=== PATIENT | female | born 1985 | race Caucasian/White ===

== ENCOUNTER 2022-11-05 13:21 | Outpatient (CLI) | payer OTHER, MEDICAID, SELFPAY ==
--- NOTE | 2022-11-05 13:45 | CRLHL7_ITS ---
For Patients: As a result of the Cures Act, medical imaging exams and procedure reports are released immediately into your electronic medical record. You may view this report before your referring provider. If you have questions, please contact your health care provider. INDICATION: First trimester scan, establish dates. COMPARISON: None. TECHNIQUE: Real-time llanes-scale imaging of the pelvis was performed. FINDINGS: Sonographic imaging demonstrates a single living intrauterine gestation. The embryo demonstrates a regular cardiac rate measuring 178 beats per minute. The embryo`s crown-rump length measurement of 2.2 cm corresponds to a gestational age of 9 weeks 0 days with a sonographic due date of 06/10/2023. There is a normal-appearing yolk sac. There are no gross abnormalities noted within the embryo at this early state of development. The gestational sac has a normal appearance. There is a 6 x 5 x 12 millimeter perigestational hemorrhage. The amount of fluid within the sac appears appropriate for gestational age. The cervix is closed. The myometrium appears normal. The right ovary appears normal. The left ovary is not visualized. Trace pelvic free fluid noted. IMPRESSION: Single living intrauterine with sonographic gestational age 9 weeks 0 days and sonographic due date 06/10/2023. Small subchorionic hemorrhage measuring 6 x 5 x 12 millimeters. Dictated by Andre Villalobos MD @ 11/05/2022 2:19:45 PM (Electronically Signed)
== END 2022-11-05 13:22 | disposition home or self-care (01) ==
LOC: US 13:23
PROVIDERS: Visit Provider Physician Assistant
DX: Z34.91 Encounter for supervision of normal pregnancy, unspecified, first trimester (principal); O20.9 Hemorrhage in early pregnancy, unspecified; Z3A.09 9 weeks gestation of pregnancy
CPT/HCPCS: 76817

== ENCOUNTER 2022-11-05 14:42 | Outpatient (CLI) | payer MEDICAID, OTHER, SELFPAY | END 2022-11-05 14:43 | disposition home or self-care (01) | PROVIDERS: Visit Provider Physician Assistant | DX: Z34.91 Encounter for supervision of normal pregnancy, unspecified, first trimester (principal); O20.9 Hemorrhage in early pregnancy, unspecified; Z3A.09 9 weeks gestation of pregnancy | CPT/HCPCS: 84443; 86592; 86703; 86762; 86787; 86803; 86850; 86900; 86901; 87086; 87340 ==

== ENCOUNTER 2022-12-28 09:48 | Outpatient (CLI) | payer MEDICAID, SELFPAY ==
--- NOTE | 2022-12-28 10:15 | CRLHL7_ITS ---
For Patients: As a result of the Cures Act, medical imaging exams and procedure reports are released immediately into your electronic medical record. You may view this report before your referring provider. If you have questions, please contact your health care provider. LEFT BREAST ULTRASOUND CLINICAL HISTORY: LEFT breast swelling/skin color changes. 16 weeks . COMPARISON: None. TECHNIQUE: Real-time ultrasound imaging of LEFT breast with imaging documentation. FINDINGS: Targeted sonogram medial LEFT breast performed 8-9 o`clock 6-10 cm from the nipple. Normal fibroglandular tissue is present. No abscess or mass. No fluid collection. No abnormal vascularity. Mild multi duct ectasia incidentally noted. IMPRESSION: No suspicious findings. No abscess. RECOMMENDATIONS: Clinical follow-up. BI-RADS Category 2: Benign A lay language report of this examination will be provided to the patient. Dictated by Andre Villalobos MD @ 12/28/2022 12:23:30 PM angelaj/Dictated by: Andre Villalobos MD @ 12/28/2022 12:23:00 PM (Electronically Signed)
--- OUTSIDE RECORDS SUMMARY | 2022-12-28 11:54 | XMS_ITS | Continuity of Care Document ---
Author Name Unknown Organization [facility] Address [address] [address] [place] [address] Phone Care Team Providers Care Pattern And Chain Maker Name Role Phone Unavailable Unavailable Unavailable Allergies, Adverse Reactions, Alerts Substance Reaction Status Criticality adhesive tape Rash Active No Information Procedures Procedure Date Ugi Endo; W/endo Ultrasound Ex New Level 4 Advance Directives Directive Yes / No Effective Date File Name No Information Encounters Encounter Description Practice Location Reason(s) For Visit Diagnoses Date Provider Providers Copied on Encounter [facility], [address] [address], [place], [place], [id number], [place] tel:[phone] [facility] No Information Apr- 1 No Information [facility], [address] [address], [place], [id number], [place] tel:[phone] [facility] Abdominal pain, acuteElevated LFTs Oct- 1 No Information [facility], [address] [address], [place], [place], [address], [place] tel:[phone] [facility] No Information Oct- 1 Lilliam Nowak. [address] [facility], [facility] [address], [place], [place], [id number], [place]. tel:[phone] Referring Provider: Susanna Escalante MD M, [address] [place] [address], [place], [address]. tel:[phone] [facility], [address] [address], [place] [address], [place] tel:[phone] [facility] No Information 1 Adrianna Wakefield. [address] [facility], [facility] [address], [place], [place], [address], [place]. tel:[phone] New Level 4 [facility], [address] [address], [place], [id number], [place] tel:[phone] [facility] GI Symptoms or Concerns (chief complaint) RUQ abdominal painElevated LFTsStatus post cholecystectom y 1 No Information Referring Provider: Zahra SALAZAR, [address], [place], [address]. tel:[phone] [facility], [address] [address], [place], [id number], [place] tel:[phone] [facility] No Information 1 No Information [facility], [address] [address], [place], [id number], [place] tel:[phone] [facility] No Information 1 Donaldo Jaeger. [address] [facility], [facility] [address], [place], [place], [id number], [place]. tel:[phone] Family History Family Member Type Diagnosis Age At Onset Mother Problem (finding) Colon polyps Father Problem (finding) Colon polyps Immunizations Vaccine Date Status Comments SARS-COV-2 (COVID-19) vaccin e, mRNA, spike protein, LNP, preservative free, 100 mcg/0.5mL dose administered Note: [facility] bi-direct ional interface ; Source: Other Registry SARS-COV-2 (COVID-19) vaccin e, mRNA, spike protein, LNP, preservative free, 100 mcg/0.5mL dose administered Note: [facility] bi-direct ional interface ; Source: Other Registry Seasonal, quadrivalent, recombinant, injectable influenza vaccine, preservative free administered Note: [facility] bi-direct ional interface ; Source: Other Registry Afluria Qd administered Note: [facility] bi-directional interface ; Source: Other Registry Afluria Qd administered Note: [facility] bi-directional interface ; Source: Other Registry tetanus toxoid, reduced diphtheria toxoid, and acellular pertussis vaccine, adsorbed administered Note: [facility] b i-directional interface ; Source: Other Registry Seasonal, trivalent, recombinant, injectable influenza vaccine, preservative free administered Note: [facility] bi-direct ional interface ; Source: Other Registry Influenza, seasonal, injecta ble, preservative free administered Note: [facility] bi-direct ional interface ; Source: Other Registry Payers Payer name Insurance type Covered libertarian ID Authoriza tion(s) No Information Social History Type Description Quantity Date Captured Comments Alcohol Use Details Unknown Caffeine Use Details Unknown Tobacco Use Status No Information Smoking Status No Information Sex Female Chief Complaint And Reason For Visit No Information Reason For Referral Reason For Referral No Information Plan Of Treatment Date Type Action Status Referral Referred To: [address]
[facility], [facility] [address] [place], [address] Ordered: referred to Cliff Turpin MD s/p danna, RUQ pain , dil cbd, elev LFTs 1st available appt ordered Referral Ordered: EUS Appointment date/timeframe: 11/13/2020 ordered History Of Present Illness Encounter Date Complaint History Of Prese nt Illness GI Symptoms or Concerns The natalia ent is a 35-year-old white female, status post cholecystectomy for gallbladder sludge, who is having a virtual visit today for evaluation of a several-year history of persistent/progressive episodes of right upper quadrant abdominal pain associated with elevated liver function tests. She again began having symptoms at least 6 years ago, which ultimately led to a cholecystectomy apparently at [facility] in 2014 for confirmed gallbladder sludge. Within 2 months following the surgery, she began having a recurrence of the same pain localized to the right upper quadrant radiating around into her back. These episodes have progressed in frequency and are now occurring at least monthly. When these attacks occur, they can usually last up to a day and may wax and wane in intensity. In between attacks, she feels well and can eat normally. She has noted that high carbohydrate foods seem to precipitate attacks. She is now working with a dietitian to moderate her Functional Status Date Functional Assessmen t No Information Instructions Date Instruction Additional Infor douglas We will schedule the patient for an endoscopic ultrasound in the near future. If there is evidence for a choledocholithiasis, then an ERCP theoretically could be done at the same time with sphincterotomy and stone/sludge removal. If her endoscopic ultrasound however is normal, then we will likely refer to [facility], Dr. Turpin for evaluation of sphincter of Oddi dysfunction. Otherwise, we will request records from the [facility] in [place], [facility] in [place], as well as [facility] for review. Related to RUQ abdominal pain Consider referral to [facility]) for ?SOD if EUS is neg Related to RUQ abdominal pain Assessments Type Assessment Date No Information Patient Care Teams Name Effective Dates (start - stop) Status Members No Information
== END 2022-12-28 09:49 | disposition home or self-care (01) ==
LOC: US 09:48
PROVIDERS: Visit Provider Obstetrics & Gynecology
DX: O26.892 Other specified pregnancy related conditions, second trimester (principal); N63.20 Unspecified lump in the left breast, unspecified quadrant
CPT/HCPCS: 76642

== ENCOUNTER 2023-02-18 14:47 | Outpatient (CLI) | payer MEDICAID, SELFPAY | END 2023-02-18 14:48 | disposition home or self-care (01) | PROVIDERS: Visit Provider Obstetrics & Gynecology | DX: O09.522 Supervision of elderly multigravida, second trimester (principal); Z3A.23 23 weeks gestation of pregnancy | CPT/HCPCS: 84439; 84443 ==

== ENCOUNTER 2023-03-17 13:33 | Outpatient (CLI) | payer OTHER, MEDICAID, SELFPAY ==
[2023-03-17 13:57] VITALS: TEMP 36.7
[2023-03-17 13:58] VITALS: BP 132/99; PULSE 121
[2023-03-17] MEDS: LACTATED RINGERS 1000 ML 1,000 ML IV (14:30)
[2023-03-17 14:36] LABS: Appearance Urine Clear (Clear); Bilirubin Urine Negative (Negative); Blood Urine Negative (Negative); Color Urine Yellow (Yellow); Glucose Urine Negative (Negative); Ketones Urine Negative (Negative); Leukocyte Esterase Urine Negative (Negative); Nitrite Urine Negative (Negative); Protein Urine Negative (Negative); Specific Gravity Urine <= 1.005 (1.000-1.030); Urobilinogen Urine 0.2 (0.2-1.0)
[2023-03-17 14:37] LABS: Hematocrit 31.6 % (33.0-51.0); Hemoglobin* 10.6 gm/dL (12.0-16.0); Mean Corpuscular HGB Conc 34 gm/dL (32-36); Mean Corpuscular Hemoglobin 29 pg (26-34); Mean Corpuscular Volume 87 fL (80-100); Platelet Count* 347 K/uL (140-440); Red Blood Count 3.63 m/uL (4.00-5.20); White Blood Count* 9.43 K/uL (4.50-11.00)
[2023-03-17] MEDS: ONDANSETRON 2 MG/ML inj 4 MG IVP (14:39)
[2023-03-17] MEDS: FAMOTIDINE 20 MG TABLET PO (14:39)
[2023-03-17 14:48] LABS: Albumin* 3.6 g/dL (3.3-5.0); Chloride* 105 mmol/L (96-114); Sodium* 133 mmol/L (135-149)
[2023-03-17 14:49] LABS: Potassium* 3.6 mmol/L (3.6-5.1)
[2023-03-17 14:51] LABS: Total Protein Urine 15 mg/dL
[2023-03-17 14:51] LABS: Aspartate Amino Transferase* 16 U/L (12-35); Bilirubin Total* 0.1 mg/dL (0.1-1.5); Blood Urea Nitrogen* 6 mg/dL (5-24); Carbon Dioxide* 21 mmol/L (20-32); Creatinine* 0.3 mg/dL (0.5-1.5); Estimated Glomerular Filt Rate 139 ml/min; Total Protein* 6.9 g/dL (6.0-8.3)
[2023-03-17 14:52] LABS: Creatinine Urine 12.5 mg/dL
[2023-03-17 14:52] LABS: Alanine Aminotransferase* 16 U/L (4-35); Alkaline Phosphatase* 65 U/L (40-150); Calcium* 8.6 mg/dL (8.4-10.6); Glucose* 93 mg/dL (60-115)
[2023-03-17 15:06] LABS: Slide Review Reflex No
[2023-03-17 15:17] VITALS: BP 112/61; PULSE 92; TEMP 36.8
--- NOTE | 2023-03-17 15:28 | CRLHL7_ITS ---
For Patients: As a result of the Cures Act, medical imaging exams and procedure reports are released immediately into your electronic medical record. You may view this report before your referring provider. If you have questions, please contact your health care provider. INDICATION: Concerning symptoms for pre-term patient. COMPARISON: OB ultrasound 01/19/2023. TECHNIQUE: Real time llanes scale imaging of the fetus was performed without non-stress testing. Color Doppler and spectral Doppler analysis of the umbilical artery was performed. FINDINGS: Sonographic imaging demonstrates a single living intrauterine gestation. The fetus demonstrates a regular cardiac rate of 144 beats per minute. The fetus has a breech orientation. The placenta lies anteriorly. The umbilical artery S/D ratio measures 2.1 which is within normal limits. There is polyhydramnios with single deepest pocket measuring 9.3 cm and the amniotic fluid index measuring 33.2 cm (2/2). The fetus was active (2/2). There was normal flexion and extension of the trunk and extremities (2/2). The fetus did not demonstrate at least 30 seconds of continuous breathing movements (0/2). IMPRESSION: 1. Biophysical profile score 6 out of 8. 2. Polyhydramnios with KEREN measuring 33.2 cm. Dictated by Jeanne Marshall MD @ 03/17/2023 5:05:01 PM (Electronically Signed)
[2023-03-17] MEDS: ACETAMINOPHEN 500 MG TABLET 1000 MG PO (15:47)
[2023-03-17 16:02] LABS: Amnisure Rom* Negative
--- NOTE | 2023-03-17 17:11 | W.PM.OBO ---
OB Outpatient HPI History of Present Illness Time Seen by Provider: 17:11 Date Seen: 03/17/23 History of Present Illness: 37 year old at 27 5/7 weeks gestation by LMP and first trimester US, VARGAS 06/11/23 , presents after not feeling great today. Patient states she woke up this morning and was feeling a bit nauseous, but went to work as usual and almost at noon started to experience a headache, increased nausea and vomited twice, she also started to experience a cramp in her abdomen, and this is when she decided to come in for evaluation. Patient also states that she has been feeling more moist but denied watery vaginal discharge or bleeding. Patient also complains of increased swelling in the lower extremities, in her hands mostly in the morning. Patient also states that she has gained about 10 pounds in 1 week. Baby moving naturally: Yes Bleeding: No Contractions: No Leaking fluid: No Discharge: No Heartburn: No Back pain: No Meds Home Medications and Allergies Home Medications Medication Instructions Recorded Confirmed Type acetaminophen 500 mg tablet 1,000 mg PO Q6H PRN 11/05/22 02/18/23 History (Tylenol Extra Strength) marsha root extract 50 mg tablet mg PO PRN 11/05/22 02/18/23 History levothyroxine 75 mcg tablet mcg PO DAILY 11/05/22 02/18/23 History prenat.vits,barron,arb-kbuf-buzum 1 tab PO QDAY 11/05/22 02/18/23 History valacyclovir 500 mg tablet 500 mg PO QDAY PRN 11/05/22 02/18/23 History aspirin 81 mg tablet,delayed 81 mg PO QDAY 12/24/22 02/18/23 History release (Adult Low Dose Aspirin) methylphenidate HCl 20 mg biphasic 20 mg PO QAM 12/24/22 02/18/23 History 50-50 capsule,extended release (Ritalin LA) Allergies Allergy/AdvReac Type Severity Reaction Status Date / Time cetirizine [From Zyrtec] Allergy Unknown Unknown Verified 02/18/23 14:00 doxycycline Allergy Unknown Gastrointestinal Verified 02/18/23 14:00 Upset fexofenadine [From Allyn] Allergy Unknown Unknown Verified 02/18/23 14:00 Sulfa (Sulfonamide Allergy Unknown Unknown Verified 02/18/23 14:00 Antibiotics) [facility] Medical History ADD (attention deficit disorder) Bilateral plantar fasciitis Depression Dysfunction of sphincter of Oddi ELOY (generalized anxiety disorder) GERD (gastroesophageal reflux disease) Herpes genitalia Hypothyroidism IBS (irritable bowel syndrome) Migraine Obstructive sleep apnea Panic attacks PTSD (post-traumatic stress disorder) Sinoatrial node tachycardia Surgical History History of cholecystectomy (2014) History of D&C (08/31/19) History of ERCP History of tonsillectomy and adenoidectomy (1989) History of vaginal delivery Family History (Updated 11/05/22 @ 15:15 by Catracho Clarke) Father Diabetes High blood pressure Depression Cardiac arrhythmia Mother Depression Cardiac arrhythmia Paternal Grandfather Stroke Paternal Grandmother Diabetes Maternal Grandfather Lung cancer Maternal Grandmother Colon cancer Sister Cardiac arrhythmia Diabetes Sister Cardiac arrhythmia Diabetes High blood pressure Social History Smoking Status: Never smoker Little interest or pleasure in doing things: not at all Feeling down, depressed, or hopeless: not at all History History 4 Elective abortions Para 2 Spontaneous abortions 1 Hx # Term Pregnancies Ectopic pregnancies Hx # Pregnancies Multiple births Number of Living Children 2 Past Pregnancies Del. Date GA/Weeks Outcome Route wt Inf Gender Labor Lgth Anesthesia Location Provider Compli 12/12/12 38 live - full term 3.459 kg Female 30 plus hrs epidural [facility] 11/05/14 37 live - full term 3.544 kg Female 30 plus hrs epidural [facility] other Delivery Date: 11/05/14 Last Updated by: Jeny Myrick ([facility]), [facility] emergency gallbladder removal at 32 weeks OB - H&P: Exam Physical Exam Vital signs: Pulse BP 92 112/61 03/17/23 15:17 03/17/23 15:17 Narrative: NST: 140bpm/positive accelerations multiple 10x10/no decelerations/moderate variability/no uterine contractions BPP:6/8, -2 for breathing, KEREN:33cm, consistent with polyhydramnios Labs Labs Laboratory Tests 03/17/23 03/17/23 03/17/23 Range/Units 15:28 14:27 14:20 WBC 9.43 (4.50-11.00) K/uL RBC 3.63 L (4.00-5.20) m/uL Hgb 10.6 L (12.0-16.0) gm/dL Hct 31.6 L (33.0-51.0) % MCV 87 (80-100) fL MCH 29 (26-34) pg MCHC 34 (32-36) gm/dL Plt Count 347 (140-440) K/uL Sodium 133 L (135-149) mmol/L Potassium 3.6 (3.6-5.1) mmol/L Chloride 105 (96-114) mmol/L Carbon Dioxide 21 (20-32) mmol/L BUN 6 (5-24) mg/dL Creatinine 0.3 L (0.5-1.5) mg/dL Estimated GFR 139 ml/min Glucose 93 (60-115) mg/dL Calcium 8.6 (8.4-10.6) mg/dL Total Bilirubin 0.1 (0.1-1.5) mg/dL AST 16 (12-35) U/L ALT 16 (4-35) U/L Alkaline Phosphatase 65 (40-150) U/L Total Protein 6.9 (6.0-8.3) g/dL Albumin 3.6 (3.3-5.0) g/dL Urine Color Yellow (Yellow) Urine Appearance Clear (Clear) Urine pH 6.0 (5.0-8.5) Ur Specific Arley <= 1.005 (1.000-1.030) Urine Protein Negative (Negative) Urine Glucose (UA) Negative (Negative) Urine Ketones Negative (Negative) Urine Blood Negative (Negative) Urine Nitrite Negative (Negative) Urine Bilirubin Negative (Negative) Urine Urobilinogen 0.2 (0.2-1.0) Ur Leukocyte Esterase Negative (Negative) Urine Creatinine 12.5 mg/dL Protein/Creatinin Ratio 1.20 H (0-0.19) Urine Total Protein 15 mg/dL Membrane Rupture Negative Assessment and Plan Assessment and plan (1) Polyhydramnios: Status: Acute Plan Patient received IVFs, Zofran and IV Pepcid and she is feeling much better. Initially she had one elevated BP with a diastolic in 99, but repeat all normal, she has not have documented elevated blood pressures this , lab work remarkable for anemia, normal platelets, normal kidney and liver function, slight hyponatremia, elevated protein to creatinine ratio. BPP 02/03, but NST reactive 04/07. Patient has a scheduled appointment in clinic tomorrow, she has her 1hrGTT scheduled for tomorrow, I will ask our clinic staff to repeat a BPP and to help schedule appointment with MFM if her 1hr GTT is normal and we do not have an explanation for polyhydramnios. Patient states that her boyfriend is diabetic and she monitors her BS sporadically and she always has normal or low blood sugars. Patient also has a blood pressure monitor at home and I recommend for her to monitor BPs at least once daily from now on. I also recommend for patient to complete a 24 hour urine collection. Patient is in agreement with plan. Time Spent with Patient Time with Patient: less than 15 minutes
--- NOTE | 2023-03-17 17:37 | PC.OBNST ---
NST Note NST Note Start: 03/17/23 13:40 Freq: ONCE Status: Active Protocol: Document 03/17/23 17:25 [facility] (Rec: 03/17/23 17:37 [facility] [id number]) NST Note 4 Para (# of births) 2 EDC 06/11/23 Gestational Age In Weeks & Days 27 Weeks & 5 Days High Risk Factors Advanced Maternal Age Patient Presented with Complaint(s) of Leaking fluid,Pain,Nausea and vomiting,Headache If Pain, describe location Tight abdominal pain Other Complaints Increased swelling in hands and feet Reactive Yes Appropriate for Gestational Age Yes SUMIT Betancourt RN Date 03/17/23 Reactive Yes Appropriate for Gestational Age Yes RN Emmy Lainez MD Date 03/17/23 OB NST charge Yes Complete NST Note via Write Note Yes The provider's electronic signature indicates the NST is reactive/appropriate for gestational age. *Note to provider: If an addendum is required, open the patient's chart and click on the note under the Nurse/Allied Health tab.
[2023-03-18 16:14] LABS: Total Protein Urine 11 mg/dL
[2023-03-18 16:16] LABS: Creatinine Urine 54.7 mg/dL
[2023-03-18 16:18] LABS: Collection Time Urine 24 Hours; Total Protein 24 Hour Urine 327.3 mg/Day; Total Volume 24 Hour Urine 2975 ml
[2024-04-18 15:33] LABS: Urine Creatinine mg/24 Hour 1627 mg/Day
== END 2023-03-17 17:25 | disposition home or self-care (01) ==
LOC: OB OUT 13:33 → OB 13:33
PROVIDERS: Visit Provider Obstetrics & Gynecology
DX: O40.9XX0 Polyhydramnios, unspecified trimester, not applicable or unspecified (principal)
CPT/HCPCS: 36415; 59025; 76819; 80053; 81003; 82570; 84112; 84156; 85027; 87086; 99213; A9270; J2405; J7120

== ENCOUNTER 2023-03-18 15:36 | Outpatient (CLI) | payer OTHER, MEDICAID, SELFPAY ==
--- OUTSIDE RECORDS SUMMARY | 2023-03-18 15:39 | XMS_ITS | Continuity of Care Document ---
Author Name Unknown Organization [facility] Address [address] [address] [place] [address] Phone Care Team Providers Care Dormitory Maid Name Role Phone Unavailable Unavailable Unavailable Allergies, Adverse Reactions, Alerts Substance Reaction Status Criticality adhesive tape Rash Active No Information Procedures Procedure Date Ugi Endo; W/endo Ultrasound Ex New Level 4 Advance Directives Directive Yes / No Effective Date File Name No Information Encounters Encounter Description Practice Location Reason(s) For Visit Diagnoses Date Provider Providers Copied on Encounter [facility], [address] [address], [place], [place], [id number], [place] tel:[phone] [facility] No Information Apr- 1 No Information [facility], [address] [address], [place], [id number], [place] tel:[phone] [facility] Abdominal pain, acuteElevated LFTs Oct- 1 No Information [facility], [address] [address], [place], [place], [address], [place] tel:[phone] [facility] No Information Oct- 1 Lilliam Nowak. [address] [facility], [facility] [address], [place], [place], [id number], [place]. tel:[phone] Referring Provider: Susanna Escalante MD M, [address] [facility], [place], [address]. tel:[phone] [facility], [address] [address], [facility], [address], [place] tel:[phone] [facility] No Information 1 Adrianna Wakefield. [address] [facility], [facility] [address], [place], [place], [address], [place]. tel:[phone] New Level 4 [facility], [address] [address], [place], [id number], [place] tel:[phone] [facility] GI Symptoms or Concerns (chief complaint) RUQ abdominal painElevated LFTsStatus post cholecystectom y 1 No Information Referring Provider: Zahra SALAZAR, [address], [place], [address]. tel:[phone] [facility], [address] [address], [place], [id number], [place] tel:[phone] [facility] No Information 1 No Information [facility], [address] [address], [place], [id number], [place] tel:[phone] [facility] No Information 1 Donaldo Jaeger. [address] [facility], [facility] [address], [place], [place], [address], [place]. tel:[phone] Family History Family Member Type Diagnosis Age [...] Type Action Status Referral Referred To: [address]
[facility], [facility] [address] [place], [address] Ordered: referred to Cliff Turpin MD s/p [...] ultimately led to a cholecystectomy apparently at [facility] in 2014 for confirmed gallbladder sludge. Within [...] we will likely refer to [facility], Dr. Turpin for evaluation of sphincter of Oddi dysfunction. Otherwise, we will request records from the [facility] in [place], [facility] in [place], as well as [facility] for review. Related to RUQ abdominal pain Consider referral to [facility]) for ?SOD if EUS is neg Related to RUQ abdominal pain Assessments Type Assessment Date No Information Patient Care Teams Name Effective Dates (start - stop) Status Members No Information
== END 2023-03-18 15:37 | disposition home or self-care (01) ==
LOC: NFLDREF 15:37
PROVIDERS: Visit Provider Obstetrics & Gynecology
DX: O40.9XX0 Polyhydramnios, unspecified trimester, not applicable or unspecified (principal)
CPT/HCPCS: 76819; 86592

== ENCOUNTER 2023-03-22 11:54 | Outpatient (CLI) | payer OTHER, MEDICAID, SELFPAY ==
--- NOTE | 2023-03-22 12:15 | CRLHL7_ITS ---
For Patients: As a result of the Cures Act, medical imaging exams and procedure reports are released immediately into your electronic medical record. You may view this report before your referring provider. If you have questions, please contact your health care provider. INDICATION: pre-eclampsia, polyhydramnios TECHNIQUE: Real time llanes scale imaging of the fetus was performed. COMPARISON: 03/18/2023 FINDINGS: Sonographic imaging demonstrates a single living intrauterine gestation. Fetus demonstrates a regular cardiac rate of 144 beats per minute. Fetus has a vertex position. The placenta lies anteriorly. Amniotic fluid volume appears upper limits of normal and there is a single deepest pocket of 7.9 cm. KEREN 20.0 cm. The estimated weight is 1928gm which lies at the greater than 97th %. On the prior OB ultrasound dated 01/19/2023 the estimated weight was at the 93rd percentile. BPD greater than 97th percentile. HC 80th percentile. AC greater than 97th percentile. FL 87th percentile. The fetus was active and demonstrated normal breathing movements. There was normal flexion and extension of the trunk and extremities. IMPRESSION: Normal biophysical profile score 8/8. Sonographic gestational age 31 weeks 4 days and sonographic due date 05/20/2023. Sonographic age 22 days ahead of the clinical age. Estimated weight greater than 97th percentile. BPD and HC greater than 97th percentile. Amniotic fluid upper limits of normal. KEREN 20.0 cm. Dictated by Andre Villalobos MD @ 03/22/2023 1:02:28 PM (Electronically Signed)
== END 2023-03-22 11:55 | disposition home or self-care (01) ==
PROVIDERS: Visit Provider Obstetrics & Gynecology
DX: O14.93 Unspecified pre-eclampsia, third trimester (principal); O40.3XX0 Polyhydramnios, third trimester, not applicable or unspecified; Z3A.31 31 weeks gestation of pregnancy
CPT/HCPCS: 76816; 76819; 82565; 84450; 84460; 84520; 84550

== ENCOUNTER 2023-03-29 13:48 | Outpatient (CLI) | payer OTHER, MEDICAID, SELFPAY ==
--- NOTE | 2023-03-29 14:20 | CRLHL7_ITS ---
For Patients: As a result of the Century Cures Act, medical imaging exams and procedure reports are released immediately into your electronic medical record. You may view this report before your referring provider. If you have questions, please contact your health care provider. INDICATION: pre-eclampsia, polyhydramnios, GDM COMPARISON: 03/22/2023 TECHNIQUE: Real time llanes scale imaging of the fetus was performed. Without non-stress testing. FINDINGS: Sonographic imaging demonstrates a single living intrauterine gestation. Fetus demonstrates a regular cardiac rate of 137 beats per minute. Fetus has a chinedu breech position. The amniotic fluid volume appears increased and there is a single deepest pocket measurement of 9.2 cm. KEREN 32.2 cm. The fetus was active and demonstrated normal breathing movements. There was normal flexion and extension of the trunk and extremities. IMPRESSION: Normal biophysical profile score of 8 out of 8. Polyhydramnios. Dictated by Andre Villalobos MD @ 03/29/2023 3:01:09 PM (Electronically Signed)
== END 2023-03-29 13:49 | disposition home or self-care (01) ==
LOC: US 13:49
PROVIDERS: Visit Provider Obstetrics & Gynecology
DX: O40.9XX0 Polyhydramnios, unspecified trimester, not applicable or unspecified (principal); O14.90 Unspecified pre-eclampsia, unspecified trimester
CPT/HCPCS: 76819; 82565; 84450; 84460; 84520; 84550

== ENCOUNTER 2023-04-01 13:28 | Outpatient (CLI) | payer OTHER, MEDICAID, SELFPAY | END 2023-04-01 13:29 | disposition home or self-care (01) | PROVIDERS: Visit Provider Obstetrics & Gynecology | DX: O09.523 Supervision of elderly multigravida, third trimester (principal); Z3A.29 29 weeks gestation of pregnancy | CPT/HCPCS: 82565; 82570; 84156; 84450; 84460; 84520; 87086 ==

== ENCOUNTER 2023-04-04 13:43 | Outpatient (CLI) | payer OTHER, MEDICAID, SELFPAY ==
--- NOTE | 2023-04-04 14:00 | CRLHL7_ITS ---
For Patients: As a result of the Century Cures Act, medical imaging exams and procedure reports are released immediately into your electronic medical record. You may view this report before your referring provider. If you have questions, please contact your health care provider. INDICATION: Polyhydramnios COMPARISON: 03/29/2023 TECHNIQUE: Real time llanes scale imaging of the fetus was performed. Without non-stress testing. FINDINGS: Sonographic imaging demonstrates a single living intrauterine gestation. Fetus demonstrates a regular cardiac rate of 142 beats per minute. Fetus has a vertex position. The amniotic fluid volume appears increased and there is a single deepest pocket measurement of 9.1 cm. KEREN 30.0 cm. The fetus was active and demonstrated normal breathing movements. There was normal flexion and extension of the trunk and extremities. IMPRESSION: Normal biophysical profile score of 8 out of 8. Polyhydramnios. Dictated by Andre Villalobos MD @ 04/05/2023 10:29:54 AM (Electronically Signed)
== END 2023-04-04 13:44 | disposition home or self-care (01) ==
LOC: US 13:44
PROVIDERS: Visit Provider Obstetrics & Gynecology
DX: O40.9XX0 Polyhydramnios, unspecified trimester, not applicable or unspecified (principal)
CPT/HCPCS: 76819; 82565; 84450; 84460; 84520; 84550

== ENCOUNTER 2023-04-11 13:31 | Outpatient (CLI) | payer OTHER, MEDICAID, SELFPAY ==
--- NOTE | 2023-04-11 14:00 | CRLHL7_ITS ---
For Patients: As a result of the Century Cures Act, medical imaging exams and procedure reports are released immediately into your electronic medical record. You may view this report before your referring provider. If you have questions, please contact your health care provider. INDICATION: pre-eclampsia, polyhydramnios COMPARISON: 04/04/2023 TECHNIQUE: Real time llanes scale imaging of the fetus was performed. Without non-stress testing. FINDINGS: Sonographic imaging demonstrates a single living intrauterine gestation. Fetus demonstrates a regular cardiac rate of 129 beats per minute. Fetus has a vertex position. The amniotic fluid volume appears increased and there is a single deepest pocket measurement of 9.8 cm. KEREN 29.5 cm. The fetus was active and demonstrated normal breathing movements. There was normal flexion and extension of the trunk and extremities. IMPRESSION: Normal biophysical profile score of 8 out of 8. Polyhydramnios. KEREN 29.5 cm. Dictated by Andre Villalobos MD @ 04/12/2023 12:30:33 PM (Electronically Signed)
== END 2023-04-11 13:32 | disposition home or self-care (01) ==
LOC: US 13:32
PROVIDERS: Visit Provider Obstetrics & Gynecology
DX: O14.90 Unspecified pre-eclampsia, unspecified trimester (principal); O40.9XX0 Polyhydramnios, unspecified trimester, not applicable or unspecified
CPT/HCPCS: 76819; 82565; 84450; 84520; 84550

== ENCOUNTER 2023-04-14 09:34 | Outpatient (CLI) | payer OTHER, MEDICAID, SELFPAY ==
[2023-04-14] VITALS (17 sets, daily range): BP systolic 123–140; BP diastolic 69–89; PULSE 93–106; RESP 18; TEMP 36.9; O2SAT 95–98
[2023-04-14 10:06] LABS: Basophils Absolute Auto 0.01 K/uL (0.00-0.30); Basophils Percent Auto 0.1 % (0.0-3.0); Eosinophils Absolute Auto 0.14 K/uL (0.00-0.50); Eosinophils Percent Auto 1.5 % (0.0-7.0); Hematocrit 34.6 % (33.0-51.0); Hemoglobin* 11.4 gm/dL (12.0-16.0); Immature Granulocytes Abs Auto 0.02 K/uL (0.00-0.30); Immature Granulocytes Pct Auto 0.2 %; Lymphocytes Percent Auto 13.2 % (20-44); Mean Corpuscular HGB Conc 33 gm/dL (32-36); Mean Corpuscular Hemoglobin 29 pg (26-34); Mean Corpuscular Volume 87 fL (80-100); Monocytes Percent Auto 4.3 % (0.0-11.0); Neutrophils Percent Auto 80.7 % (42.0-72.0); Platelet Count* 319 K/uL (140-440); RDW Coefficient of Variation % 12.8 % (11.5-15.5); Red Blood Count 3.98 m/uL (4.00-5.20); White Blood Count* 9.47 K/uL (4.50-11.00)
[2023-04-14] MEDS: LACTATED RINGERS 1000 ML 1,000 ML 125 ML IV ×2 (10:07→12:17)
[2023-04-14] MEDS: ONDANSETRON 2 MG/ML inj 4 MG IVP (10:07)
[2023-04-14 10:10] LABS: Slide Review Reflex No
[2023-04-14 10:19] LABS: Albumin* 3.7 g/dL (3.3-5.0); Chloride* 105 mmol/L (96-114); Potassium* 4.1 mmol/L (3.6-5.1); Sodium* 134 mmol/L (135-149)
[2023-04-14 10:21] LABS: Creatinine* 0.4 mg/dL (0.5-1.5); Estimated Glomerular Filt Rate 130 ml/min
[2023-04-14 10:22] LABS: Alanine Aminotransferase* 14 U/L (4-35); Alkaline Phosphatase* 97 U/L (40-150); Aspartate Amino Transferase* 16 U/L (12-35); Bilirubin Total* 0.2 mg/dL (0.1-1.5); Blood Urea Nitrogen* 6 mg/dL (5-24); Carbon Dioxide* 21 mmol/L (20-32); Glucose* 97 mg/dL (60-115); Total Protein* 7.1 g/dL (6.0-8.3)
[2023-04-14 10:23] LABS: Calcium* 8.3 mg/dL (8.4-10.6)
--- NOTE | 2023-04-14 11:02 | CRLHL7_ITS ---
For Patients: As a result of the Cures Act, medical imaging exams and procedure reports are released immediately into your electronic medical record. You may view this report before your referring provider. If you have questions, please contact your health care provider. Indication: labor Technique: Sonography of the cervix was perform limited only to that which is discussed below Comparison: None specifically to measure the cervix Findings: The cervix is closed. The length is 5 centimeters with and without fundal pressure. There is no funneling membranes. Impression: Closed cervix measuring 5 centimeters in length. No funneling of membranes. No change in morphology and length with fundal pressure. Dictated by Ananda Lemon MD @ 04/14/2023 12:43:42 PM (Electronically Signed)
[2023-04-14 11:08] LABS: Amnisure Rom* Negative
[2023-04-14] MEDS: MORPHINE 2 MG/ML inj 4 MG IVP (11:12)
[2023-04-14 11:42] LABS: Appearance Urine Clear (Clear); Bilirubin Urine Negative (Negative); Blood Urine Negative (Negative); Color Urine Yellow (Yellow); Glucose Urine Negative (Negative); Ketones Urine 2+ (Negative); Leukocyte Esterase Urine Negative (Negative); Nitrite Urine Negative (Negative); Protein Urine Negative (Negative)
[2023-04-14 12:12] LABS: Creatinine Urine 83.6 mg/dL; Total Protein Urine < 5 mg/dL
[2023-04-14] MEDS: hydrOXYzine pamoate 25 MG CAPSULE 50 MG PO (13:28)
[2023-04-14] MEDS: BETAMETHASONE SOD PHOS/ACETATE 6 MG/ML ML 12 MG IM (13:30)
[2023-04-15 11:22] LABS: Strep B DNA Probe NEGATIVE (Negative)
[2023-04-15 11:42] LABS: Strep B Pen/Amox Allergy No
--- NOTE | 2023-05-14 17:03 | PC.OBNST ---
NST Note NST Note Start: 04/14/23 09:45 Freq: ONCE Status: Discharge Protocol: Document 04/14/23 14:07 JASON (Rec: 04/14/23 14:09 RAMOY [id number]) NST Note 4 Para (# of births) 2 EDC 06/11/23 Gestational Age In Weeks & Days 31 Weeks & 5 Days High Risk Factors High Blood Pressure - Gestational,Diabetes - Gestational Insulin,Advanced Maternal Age Patient Presented with Complaint(s) of Contractions/cramping Reactive Yes Appropriate for Gestational Age Yes RN Anjali Gillis RN Date 04/14/23 Reactive Yes Appropriate for Gestational Age Yes SUMIT Sena RN Date 04/14/23 OB NST charge Yes Complete NST Note via Write Note Yes The provider's electronic signature indicates the NST is reactive/appropriate for gestational age. *Note to provider: If an addendum is required, open the patient's chart and click on the note under the Nurse/Allied Health tab.
== END 2023-04-14 14:00 | disposition home or self-care (01) ==
LOC: OB OUT 09:35 → OB 09:36
PROVIDERS: Visit Provider Obstetrics & Gynecology
DX: O40.3XX0 Polyhydramnios, third trimester, not applicable or unspecified (principal); O14.93 Unspecified pre-eclampsia, third trimester; Z3A.31 31 weeks gestation of pregnancy
CPT/HCPCS: 36415; 59025; 76817; 80053; 81003; 82570; 84112; 84156; 85025; 87081; 87653; 99213; A9270; J0702; J2270; J2405; J7120

== ENCOUNTER 2023-04-18 14:36 | Outpatient (CLI) | payer OTHER, MEDICAID, SELFPAY ==
--- NOTE | 2023-04-18 15:00 | CRLHL7_ITS ---
For Patients: As a result of the Century Cures Act, medical imaging exams and procedure reports are released immediately into your electronic medical record. You may view this report before your referring provider. If you have questions, please contact your health care provider. INDICATION: Third trimester scan, evaluate growth. Preeclampsia. Polyhydramnios. Gestational diabetes mellitus. COMPARISON: April 11, 2023. April 04, 2023. TECHNIQUE: Real time llanes scale imaging of the fetus was performed. FINDINGS: Sonographic imaging demonstrates a single living intrauterine gestation. Fetus demonstrates a regular cardiac rate of 161 beats per minute. Fetus has a vertex orientation and longitudinal lie with spine to the maternal left side. The placenta lies anteriorly without evidence of placenta previa. Amniotic fluid volume appears normal and there is a four-quadrant fluid volume index measurement of 23.1 previously 29.5. The composite ultrasound gestational age is calculated at 34 weeks 0 days. The estimated weight is 2516 which lies at the greater than 97th percentile. The HC/AC ratio measures 0.99 range (0.93-1.11). Biparietal diameter 8.6 cm, 34 weeks 5 days, 95th percentile. Head circumference 31.2 cm, 34 weeks 6 days, 80th percentile. Abdominal circumference 31.6 cm, 35 weeks 4 days, greater than the 97th percentile. Femur length 6.5 cm, 33 weeks 3 days, 68th percentile. Composite calculated ultrasound age 34 weeks 0 days with a sonographic due date of May 30, 2023. This is advanced by nearly 2 weeks when correlated with the age based on last menstrual provided. Biophysical profile score 8 out of 8 with 2 points given each for breathing, movement, tone, and amniotic fluid. IMPRESSION: Single living intrauterine in vertex presentation. Composite calculated ultrasound age 34 weeks 0 days. Biophysical profile score 8 out of 8. Amniotic fluid volume index is toward the upper limit of normal at 23.1, previously 29.5. Dictated by Medardo Wong MD @ 04/20/2023 9:38:36 PM (Electronically Signed)
== END 2023-04-18 14:37 | disposition home or self-care (01) ==
LOC: US 14:37
PROVIDERS: Visit Provider Obstetrics & Gynecology
DX: O14.93 Unspecified pre-eclampsia, third trimester (principal); O40.3XX0 Polyhydramnios, third trimester, not applicable or unspecified; Z3A.34 34 weeks gestation of pregnancy
CPT/HCPCS: 76816; 76819; 82565; 84450; 84460; 84520; 84550

== ENCOUNTER 2023-04-27 13:46 | Outpatient (CLI) | payer OTHER, MEDICAID, SELFPAY ==
--- NOTE | 2023-04-27 14:00 | CRLHL7_ITS ---
For Patients: As a result of the Century Cures Act, medical imaging exams and procedure reports are released immediately into your electronic medical record. You may view this report before your referring provider. If you have questions, please contact your health care provider. INDICATION: Gestational diabetes COMPARISON: 04/18/2023 TECHNIQUE: Real time llanes scale imaging of the fetus was performed. Without non-stress testing. FINDINGS: Sonographic imaging demonstrates a single living intrauterine gestation. Fetus demonstrates a regular cardiac rate of 154 beats per minute. Fetus has a transverse position, head maternal left. The amniotic fluid volume appears lower limits of normal and there is a single deepest pocket measurement of 2.9 cm. KEREN 8.3 cm. The fetus was active and demonstrated normal breathing movements. There was normal flexion and extension of the trunk and extremities. IMPRESSION: Normal biophysical profile score of 8 out of 8. Dictated by Andre Villalobos MD @ 04/27/2023 2:37:54 PM (Electronically Signed)
== END 2023-04-27 13:47 | disposition home or self-care (01) ==
LOC: US 13:46
PROVIDERS: Visit Provider Obstetrics & Gynecology
DX: O24.414 Gestational diabetes mellitus in pregnancy, insulin controlled (principal); Z3A.33 33 weeks gestation of pregnancy
CPT/HCPCS: 76819; 82565; 84443; 84450; 84460; 84520; 84550

== ENCOUNTER 2023-04-27 15:09 | Outpatient (CLI) | payer OTHER, MEDICAID, SELFPAY ==
[2023-04-27] VITALS (7 sets, daily range): BP systolic 112–125; BP diastolic 58–86; PULSE 88–104; TEMP 36.6
[2023-04-27 15:41] LABS: Amnisure Rom* Negative
[2023-04-27] MEDS: LACTATED RINGERS 1000 ML 1,000 ML IV (15:46)
[2023-04-27] MEDS: ACETAMINOPHEN 500 MG TABLET 1000 MG PO (16:34)
--- NOTE | 2023-04-27 18:31 | PC.OBNST ---
NST Note NST Note Start: 04/27/23 15:13 Freq: ONCE Status: Active Protocol: Document 04/27/23 18:28 AVL (Rec: 04/27/23 18:31 AVL [id number]) NST Note 4 Para (# of births) 2 EDC 06/11/23 Gestational Age In Weeks & Days 33 Weeks & 4 Days High Risk Factors High Blood Pressure - Gestational,Diabetes - Gestational Insulin Patient Presented with Complaint(s) of Other If Pain, describe location Headache Other Complaints High pressures in clinic, Diarrhea - here for fluids and Amnisure Reactive Yes Appropriate for Gestational Age Yes SUMIT Zhong RN Date 04/27/23 Reactive Yes Appropriate for Gestational Age Yes SUMIT Caceres RNC Date 04/27/23 OB NST charge Yes Complete NST Note via Write Note Yes The provider's electronic signature indicates the NST is reactive/appropriate for gestational age. *Note to provider: If an addendum is required, open the patient's chart and click on the note under the Nurse/Allied Health tab.
== END 2023-04-27 18:15 | disposition home or self-care (01) ==
LOC: OB OUT 15:10 → OB 15:10
PROVIDERS: Obstetrics & Gynecology; Visit Provider Obstetrics & Gynecology
DX: O24.419 Gestational diabetes mellitus in pregnancy, unspecified control (principal); O16.3 Unspecified maternal hypertension, third trimester; Z3A.33 33 weeks gestation of pregnancy
CPT/HCPCS: 59025; 84112; 99213; A9270; J7120

== ENCOUNTER 2023-05-03 08:02 | Outpatient (CLI) | payer OTHER, MEDICAID, SELFPAY | END 2023-05-03 08:03 | disposition home or self-care (01) | LOC: NFLDREF 09:43 | PROVIDERS: Visit Provider Obstetrics & Gynecology | DX: O09.523 Supervision of elderly multigravida, third trimester (principal) | CPT/HCPCS: 82565; 84450; 84460; 84520; 84550; 87081; 87653 ==

== ENCOUNTER 2023-05-03 08:04 | Outpatient (CLI) | payer OTHER, MEDICAID, SELFPAY ==
--- NOTE | 2023-05-03 08:15 | CRLHL7_ITS ---
For Patients: As a result of the Century Cures Act, medical imaging exams and procedure reports are released immediately into your electronic medical record. You may view this report before your referring provider. If you have questions, please contact your health care provider. INDICATION: POLYHYDRAMINOS COMPARISON: 04/27/2023 TECHNIQUE: Real time llanes scale imaging of the fetus was performed. Without non-stress testing. FINDINGS: Sonographic imaging demonstrates a single living intrauterine gestation. Fetus demonstrates a regular cardiac rate of 167 beats per minute. Fetus has a vertex position. The amniotic fluid volume appears normal and there is a single deepest pocket measurement of 7.2 cm. The fetus was active and demonstrated normal breathing movements. There was normal flexion and extension of the trunk and extremities. IMPRESSION: Normal biophysical profile score of 8 out of 8. Dictated by Andre Villalobos MD @ 05/03/2023 9:18:54 AM (Electronically Signed)
== END 2023-05-03 08:05 | disposition home or self-care (01) ==
LOC: US 08:04
PROVIDERS: Visit Provider Obstetrics & Gynecology
DX: O40.9XX0 Polyhydramnios, unspecified trimester, not applicable or unspecified (principal)
CPT/HCPCS: 76819; 82565; 84450; 84460; 84520; 84550

== ENCOUNTER 2023-05-08 18:00 | Outpatient (CLI) | payer OTHER, MEDICAID, SELFPAY ==
--- OUTSIDE RECORDS SUMMARY | 2023-05-08 18:13 | XMS_ITS | Continuity of Care Document ---
Author Name Unknown Organization [facility] Address [address] [address] [place] [address] Phone Care Team Providers Care Readiness Paraprofessional Name Role Phone Unavailable Unavailable Unavailable Allergies, Adverse Reactions, Alerts Substance Reaction Status Criticality adhesive tape Rash Active No Information Procedures Procedure Date Ugi Endo; W/endo Ultrasound Ex New Level 4 Advance Directives Directive Yes / No Effective Date File Name No Information Encounters Encounter Description Practice Location Reason(s) For Visit Diagnoses Date Provider Providers Copied on Encounter [facility], [address] [address], [place], [place], [id number], [place] tel:[phone] [facility] No Information Apr- 1 No Information [facility], [address] [address], [place], [id number], [place] tel:[phone] [facility] Abdominal pain, acuteElevated LFTs Oct- 1 No Information [facility], [address] [address], [place], [place], [address], [place] tel:[phone] [facility] No Information Oct- 1 Lilliam Nowak. [address] [facility], [facility] [address], [place], [place], [address], [place]. tel:[phone] Referring Provider: Susanna Escalante MD M, [address] [facility], [place], [address]. tel:[phone] [facility], [address] [address], [place], [address], [place] tel:[phone] [facility] No Information 1 Adrianna Wakefield. [address] [facility], [facility] [address], [place], [place], [address], [place]. tel:[phone] New Level 4 [facility], [address] [address], [place], [id number], [place] tel:[phone] [facility] GI Symptoms or Concerns (chief complaint) RUQ abdominal painElevated LFTsStatus post cholecystectom y 1 No Information Referring Provider: Zahra SALAZAR, [address], [place], [address]. tel:[phone] [facility], [address] [address], [place], [id number], [place] tel:[phone] [facility] No Information 1 No Information [facility], [address] [address], [place], [id number], [place] tel:[phone] [facility] No Information 1 Donaldo Jaeger. [address] [facility], [facility] [address], [place], [place], [address], [place]. tel:[phone] Family History Family Member Type Diagnosis Age [...] Registry Payers Payer name Insurance type Covered constitution party ID Authoriza tion(s) No Information Social History Type Description Quantity Date Captured Comments Alcohol Use Details Unknown Caffeine Use Details Unknown Tobacco Use Status No Information Smoking Status No Information Sex Female Chief Complaint And Reason For Visit No Information Reason For Referral Reason For Referral No Information Plan Of Treatment Date Type Action Status Referral Referred To: [address]
[facility], [facility] [address] [place], [address] Ordered: referred to Cliff Turpin MD s/p [...] ultimately led to a cholecystectomy apparently at [facility] in 2014 for confirmed gallbladder sludge. Within [...] we will likely refer to [facility], Dr. Turpin for evaluation of sphincter of Oddi dysfunction. Otherwise, we will request records from the [facility] in [place], [facility] in [place], as well as [facility] for review. Related to RUQ abdominal pain Consider referral to [facility]) for ?SOD if EUS is neg Related to RUQ abdominal pain Assessments Type Assessment Date No Information Patient Care Teams Name Effective Dates (start - stop) Status Members No Information
[2023-05-08 18:26] VITALS: PULSE 120; O2SAT 97
[2023-05-08 18:28] VITALS: RESP 16
[2023-05-08 18:36] VITALS: BP 136/92; PULSE 115
[2023-05-08 18:52] VITALS: BP 141/86; PULSE 113
[2023-05-08 19:06] VITALS: BP 147/83; PULSE 113
[2023-05-08 19:16] LABS: Appearance Urine Clear (Clear); Bilirubin Urine Negative (Negative); Blood Urine Trace-intact (Negative); Color Urine Yellow (Yellow); Glucose Urine Negative (Negative); Ketones Urine Negative (Negative); Leukocyte Esterase Urine Negative (Negative); Nitrite Urine Negative (Negative); Protein Urine Negative (Negative); Urobilinogen Urine 0.2 (0.2-1.0); pH Urine 5.5 (5.0-8.5)
[2023-05-08 19:25] LABS: Bacteria Urine Many; RBC Urine 0-2 (0-2); Squamous Epithelial Cell Urine Few (None-Few)
[2023-05-08 19:39] VITALS: TEMP 36.8
[2023-05-08 19:44] LABS: Clue Cells No Clue Cells Seen (None Seen); Trichomonas No Trichomonas Seen (None Seen); Yeast No Yeast Seen (None Seen)
[2023-05-08] MEDS: hydrOXYzine pamoate 25 MG CAPSULE 100 MG PO (20:30)
--- NOTE | 2023-05-08 21:05 | PC.OBNST ---
NST Note NST Note Start: 05/08/23 18:12 Freq: ONCE Status: Active Protocol: Document 05/08/23 20:45 CINDY (Rec: 05/08/23 21:05 CINDY [id number]) NST Note 4 Para (# of births) 2 EDC 06/11/23 Gestational Age In Weeks & Days 35 Weeks & 1 Days High Risk Factors High Blood Pressure - Gestational,Diabetes - Gestational Insulin,Advanced Maternal Age Patient Presented with Complaint(s) of Contractions/cramping Reactive Yes Appropriate for Gestational Age Yes SUMIT Brand RN Date 05/08/23 Reactive Yes Appropriate for Gestational Age Yes SUMIT Trinh Date 05/08/23 OB NST charge Yes Complete NST Note via Write Note Yes The provider's electronic signature indicates the NST is reactive/appropriate for gestational age. *Note to provider: If an addendum is required, open the patient's chart and click on the note under the Nurse/Allied Health tab.
== END 2023-05-08 20:45 | disposition home or self-care (01) ==
LOC: OB OUT 18:10 → OB 18:11
PROVIDERS: Visit Provider Obstetrics & Gynecology
DX: Z34.93 Encounter for supervision of normal pregnancy, unspecified, third trimester (principal); Z3A.34 34 weeks gestation of pregnancy
CPT/HCPCS: 59025; 81003; 81015; 87086; 87210; 99213; A9270

== ENCOUNTER 2023-05-09 13:42 | Outpatient (CLI) | payer OTHER, MEDICAID, SELFPAY ==
--- NOTE | 2023-05-09 14:00 | CRLHL7_ITS ---
For Patients: As a result of the Century Cures Act, medical imaging exams and procedure reports are released immediately into your electronic medical record. You may view this report before your referring provider. If you have questions, please contact your health care provider. INDICATION: Polyhydramnios, gestational diabetes, advanced maternal age COMPARISON: 05/03/2023, 04/27/2023 TECHNIQUE: Real time llanes scale imaging of the fetus was performed. Without non-stress testing. FINDINGS: Sonographic imaging demonstrates a single living intrauterine gestation. Fetus demonstrates a regular cardiac rate of 144 beats per minute. Fetus has a vertex position. The amniotic fluid volume appears normal and there is a single deepest pocket measurement of 9.0 cm. KEREN 18.0 cm. The fetus was active and demonstrated normal breathing movements. There was normal flexion and extension of the trunk and extremities. IMPRESSION: Normal biophysical profile score of 8 out of 8. Normal four-quadrant KEREN measurement of 18.0 cm. Dictated by Andre Villalobos MD @ 05/11/2023 6:37:52 AM (Electronically Signed)
== END 2023-05-09 13:43 | disposition home or self-care (01) ==
LOC: US 13:43
PROVIDERS: Visit Provider Obstetrics & Gynecology
DX: O14.90 Unspecified pre-eclampsia, unspecified trimester (principal); O40.9XX0 Polyhydramnios, unspecified trimester, not applicable or unspecified; O09.529 Supervision of elderly multigravida, unspecified trimester
CPT/HCPCS: 76819; 82565; 84450; 84460; 84520; 84550

== ENCOUNTER 2023-05-16 14:21 | Outpatient (CLI) | payer OTHER, MEDICAID, SELFPAY ==
--- NOTE | 2023-05-16 15:00 | CRLHL7_ITS ---
For Patients: As a result of the Century Cures Act, medical imaging exams and procedure reports are released immediately into your electronic medical record. You may view this report before your referring provider. If you have questions, please contact your health care provider. INDICATION: DM, AMA, possible pre-eclampsia, hx polyhydramnios TECHNIQUE: Real time llanes scale imaging of the fetus was performed. COMPARISON: 05/09/2023, 04/18/2023 FINDINGS: Sonographic imaging demonstrates a single living intrauterine gestation. Fetus demonstrates a regular cardiac rate of 152 beats per minute. Fetus has a vertex position. The placenta lies anteriorly. Amniotic fluid volume appears normal and there is a single deepest pocket of 6.7 cm. The estimated weight is 4178gm which lies at the greater than 97th %. On the prior OB ultrasound dated 04/18/2023 the estimated weight was at the greater than 97th percentile. BPD 96th percentile. HC and AC greater than 97th percentile. [place] 87th percentile. The fetus was active and demonstrated normal breathing movements. There was normal flexion and extension of the trunk and extremities. IMPRESSION: Normal biophysical profile score 8/8. Sonographic gestational age 39 weeks 0 days and sonographic due date 05/23/2023. Sonographic age is 19 days ahead of the clinical age. Estimated weight greater than 97th percentile. HC and AC greater than 97th percentile. Dictated by Andre Villalobos MD @ 05/17/2023 6:10:57 AM (Electronically Signed)
== END 2023-05-16 14:22 | disposition home or self-care (01) ==
LOC: US 14:23
PROVIDERS: Visit Provider Obstetrics & Gynecology
DX: O14.93 Unspecified pre-eclampsia, third trimester (principal); O40.3XX0 Polyhydramnios, third trimester, not applicable or unspecified; Z3A.39 39 weeks gestation of pregnancy
CPT/HCPCS: 76816; 76819; 82565; 84450; 84460; 84520; 84550

== ENCOUNTER 2023-05-20 15:41 | Inpatient (IN) | payer OTHER, MEDICAID, SELFPAY ==
--- OUTSIDE RECORDS SUMMARY | 2023-05-20 15:44 | XMS_ITS | Continuity of Care Document ---
Author Name Unknown Organization [facility] Address [address] [address] [place] [address] Phone Care Team Providers Care Art Model Name Role Phone Unavailable Unavailable Unavailable Allergies, Adverse Reactions, Alerts Substance Reaction Status Criticality adhesive tape Rash Active No Information Procedures Procedure Date Ugi Endo; W/endo Ultrasound Ex New Level 4 Advance Directives Directive Yes / No Effective Date File Name No Information Encounters Encounter Description Practice Location Reason(s) For Visit Diagnoses Date Provider Providers Copied on Encounter [facility], [address] [address], [place], [place], [address], [place] tel:[phone] [facility] No Information Apr- 1 No Information [facility], [address] [address], [place], [address], [place] tel:[phone] [facility] Abdominal pain, acuteElevated LFTs Oct- 1 No Information [facility], [address] [address], [place], [place], [address], [place] tel:[phone] [facility] No Information Oct- 1 Lilliam Nowak. [address] [facility], [facility] [address], [place], [place], [id number], [place]. tel:[phone] Referring Provider: Susanna Escalante MD M, [address] [facility], [place], [address]. tel:[phone] [facility], [address] [address], [place], [address], [place] tel:[phone] [facility] No Information 1 Adrianna Wakefield. [address] [facility], [facility] [address], [place], [place], [address], [place]. tel:[phone] New Level 4 [facility], [address] [address], [place], [id number], [place] tel:[phone] [facility] GI Symptoms or Concerns (chief complaint) RUQ abdominal painElevated LFTsStatus post cholecystectom y 1 No Information Referring Provider: Zahra SALAZAR, [address], [place], [address]. tel:[phone] [facility], [address] [address], [place], [id number], [place] tel:[phone] [facility] No Information 1 No Information [facility], [address] [address], [place], [id number], [place] tel:[phone] [facility] No Information 1 Donaldo Jaeger. [address] [facility], [facility] [address], [place], [place], [address], [place]. tel:[phone] Family History Family Member Type Diagnosis Age [...] Type Action Status Referral Referred To: [address]
[facility], [facility] [address] [place], [address] Ordered: referred to Cliff Turpin MD s/p [...] ultimately led to a cholecystectomy apparently at [facility] in 2014 for confirmed gallbladder sludge. Within [...] we will likely refer to the [facility], Dr. Turpin for evaluation of sphincter of Oddi dysfunction. Otherwise, we will request records from the [facility] in [place], [facility] in [place], as well as [facility] for review. Related to RUQ abdominal pain Consider referral to [facility]) for ?SOD if EUS is neg Related to RUQ abdominal pain Assessments Type Assessment Date No Information Patient Care Teams Name Effective Dates (start - stop) Status Members No Information
[2023-05-20 16:00] VITALS: PULSE 107; TEMP 36.9; O2SAT 98
[2023-05-20 16:01] VITALS: BP 146/87; PULSE 103
[2023-05-20 16:33] VITALS: BMI 35.4
[2023-05-20 16:46] VITALS: BP 141/86; PULSE 92
[2023-05-20 17:32] LABS: Hematocrit 34.6 % (33.0-51.0); Hemoglobin* 11.6 gm/dL (12.0-16.0); Mean Corpuscular HGB Conc 34 gm/dL (32-36); Mean Corpuscular Hemoglobin 29 pg (26-34); Mean Corpuscular Volume 85 fL (80-100); Platelet Count* 301 K/uL (140-440); Red Blood Count 4.06 m/uL (4.00-5.20); White Blood Count* 9.53 K/uL (4.50-11.00)
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
[2023-05-20 17:42] LABS: Slide Review Acceptable Review (Acceptable); Slide Review Reflex No
[2023-05-20 17:50] LABS: Alanine Aminotransferase* 10 U/L (4-35); Aspartate Amino Transferase* 15 U/L (12-35); Creatinine* 0.4 mg/dL (0.5-1.5); Est. Creatinine Clearance* 220.06; Estimated Glomerular Filt Rate 130 ml/min
[2023-05-20 17:51] LABS: Blood Urea Nitrogen* 6 mg/dL (5-24)
[2023-05-20 18:04] LABS: Total Protein Urine 10 mg/dL
[2023-05-20 18:05] LABS: Creatinine Urine 83.6 mg/dL
[2023-05-20] MEDS: DINOPROSTONE 10 MG VAGINAL INSERT VAGINAL (18:39)
[2023-05-20 19:31] VITALS: PULSE 107; O2SAT 97
[2023-05-20 19:32] VITALS: BP 136/87; PULSE 105; RESP 16; TEMP 37.1
[2023-05-20] MEDS: INSULIN NPH 100 UNIT/ML 11 UNIT SUBCUT (20:14)
[2023-05-20] MEDS: VALACYCLOVIR HCL 500 MG TABLET PO (20:18)
[2023-05-20 22:26] VITALS: BP 115/67; PULSE 90; PULSE 91; RESP 16; TEMP 36.9; O2SAT 97
[2023-05-20] MEDS: hydrOXYzine pamoate 25 MG CAPSULE 100 MG PO (22:28)
[2023-05-20] MEDS: MORPHINE 10 MG/ML inj IM (22:39)
[2023-05-21] VITALS (69 sets, daily range): BP systolic 109–155; BP diastolic 55–91; PULSE 73–120; RESP 18; TEMP 36.6–37.1; O2SAT 94–100
[2023-05-21] MEDS: fentaNYL 100 MCG/2 ML inj IVP ×3 (07:25→09:34)
[2023-05-21] MEDS: LACTATED RINGERS 1000 ML 1,000 ML 999 ML IV ×3 (07:29→11:15)
[2023-05-21] MEDS: OMEPRAZOLE 20 MG CAPSULE DR 40 MG PO ×2 (08:24→20:22)
[2023-05-21] MEDS: VALACYCLOVIR HCL 500 MG TABLET PO (08:24)
[2023-05-21] MEDS: LEVOTHYROXINE 75 MCG TABLET PO (08:25)
[2023-05-21] MEDS: INSULIN NPH 100 UNIT/ML SUBCUT (09:00)
--- NOTE | 2023-05-21 09:43 | P.OBPN_ITS ---
Subjective Time Seen by Provider: 09:43 Date Seen: 05/21/23 Narrative: Patient noticing contractions more this morning near the end of the the naproxen inserted afterwards but more recently have spaced out. Has received 3 doses of fentanyl for analgesia with good pain relief. Blood pressures in the normal range and asymptomatic, glucose is controlled in the 70s and a breakfast this morning. Baby moving constantly. Objective Exam: No apparent distress, easily conversant, breathing unlabored Vital Signs: Last Vital Signs Temp 98.1 F 05/21/23 06:33 Pulse 82 05/21/23 06:33 Resp 18 05/21/23 06:33 BP 119/67 05/21/23 06:33 Pulse Ox 97 05/21/23 08:54 Pelvic Exam Dilation (cm): 2.5 Effacement (%): 30 Station: 0 Comments: AROM performed for small amount of clear blood-tinged fluid Contractions Monitor mode: External Contraction Frequency: 3-5 min Contraction pattern: Irregular Contraction intensity: Moderate Assessment Assessment: early labor Station: 0 Amniotic Membrane Status: AROM Status: Category l Heart Rate Baseline: 145 Long-Term Variability: Moderate (6-25) Monitor Accelerations: Present Monitor Decelerations: None Labor Progress: Cervical change since last nursing check, AROM performed Plan Plan: Start oxytocin augmentation at this time, start insulin protocol, continue to monitor signs and symptoms of preeclampsia
[2023-05-21] MEDS: OXYTOCIN 30 unit/500 ML in NS 30 UNIT/500 ML BAG IVPB (09:57)
[2023-05-21] MEDS: LIDOCAINE 2% (PF) 5 ML VIAL EPIDURAL (10:51)
[2023-05-21] MEDS: ROPIVACAINE 0.2 % PF 10 ML INJ 20 MG EPIDURAL (10:51)
[2023-05-21] MEDS: ROPIVACAINE 0.2% 100 ml 100 ML 12 MG EPIDURAL (11:11)
--- NOTE | 2023-05-21 11:16 | PM.ANBPRC ---
[facility] [place] Medical History ADD (attention deficit disorder) Bilateral plantar fasciitis Depression Dysfunction of sphincter of Oddi ELOY (generalized anxiety disorder) GERD (gastroesophageal reflux disease) Herpes genitalia Hypothyroidism IBS (irritable bowel syndrome) Migraine Obstructive sleep apnea Panic attacks PTSD (post-traumatic stress disorder) Sinoatrial node tachycardia Surgical History History of tonsillectomy and adenoidectomy (1989) ?Z90.89 - Acquired absence of other organs (ICD-10) History of vaginal delivery History of D&C (08/31/19) ?Z98.890 - Other specified postprocedural states (ICD-10) History of ERCP ?Z98.890 - Other specified postprocedural states (ICD-10) History of cholecystectomy (2014) ?Z90.49 - Acquired absence of other specified parts of digestive tract (ICD-10) Family History Father Diabetes High blood pressure Depression Cardiac arrhythmia Mother Depression Cardiac arrhythmia Paternal Grandfather Stroke Paternal Grandmother Diabetes Maternal Grandfather Lung cancer Maternal Grandmother Colon cancer Sister Cardiac arrhythmia Diabetes Sister Cardiac arrhythmia Diabetes High blood pressure Social History What is your current living situation?: I presently have a place to live Problems where you live: no known problems In the past 12 months, utilities in danger of being shut off: no In past 12 months, lack of transportation kept you from medical appts, meetings, work, or getting things needed for daily living: no In the past 12 mos, have been you worried that your food would run out before you had money to buy more?: never true In the past 12 mos, the food you bought just didn't last and you didn't have money to buy more?: never true Smoking Status: Never smoker How often does anyone, including family, friends and others, physically hurt you: never How often does anyone, including family, friends and others, insult or talk down to you: never How often does anyone, including family, friends and others, threaten you with harm: never How often does anyone, including family, friends and others, scream or curse at you: never Little interest or pleasure in doing things: not at all Feeling down, depressed, or hopeless: not at all Meds Home Medications and Allergies Home Medications Medication Instructions Recorded Confirmed Type acetaminophen 500 mg tablet 1,000 mg PO Q6H PRN 11/05/22 05/20/23 History (Tylenol Extra Strength) marsha root extract 50 mg tablet mg PO PRN 11/05/22 05/16/23 History levothyroxine 75 mcg tablet 75 mcg PO DAILY 11/05/22 05/20/23 History prenat.vits,barron,gai-exjd-anbrb 1 tab PO QDAY 11/05/22 05/20/23 History valacyclovir 500 mg tablet 500 mg PO QDAY PRN 11/05/22 05/20/23 History aspirin 81 mg tablet,delayed 81 mg PO QDAY 12/24/22 05/20/23 History release (Adult Low Dose Aspirin) methylphenidate HCl 20 mg biphasic 20 mg PO QAM 12/24/22 05/20/23 History 50-50 capsule,extended release (Ritalin LA) insulin NPH isoph U-100 human 100 22 unit subcut .hs 04/04/23 05/20/23 History unit/mL (3 mL) subcutaneous pen (Humulin N NPH U-100 Insulin KwikPen) omeprazole 20 mg capsule,delayed 40 mg PO BID 05/03/23 05/20/23 History release ascorbic acid (vitamin C) 250 mg 250 mg PO DAILY 05/08/23 05/20/23 History tablet (Vitamin C) insulin NPH isoph U-100 human 100 15 unit subcut QAM 05/08/23 05/20/23 History unit/mL (3 mL) subcutaneous pen (Humulin N NPH U-100 Insulin KwikPen) Allergies Allergy/AdvReac Type Severity Reaction Status Date / Time cetirizine [From Zyrtec] Allergy Unknown Unknown Verified 05/16/23 13:49 doxycycline Allergy Unknown Gastrointestinal Verified 05/16/23 13:49 Upset fexofenadine [From Allyn] Allergy Unknown Unknown Verified 05/16/23 13:49 Sulfa (Sulfonamide Allergy Unknown Unknown Verified 05/16/23 13:49 Antibiotics) Results Labs Labs: Laboratory Results - last 24 hr 05/20/23 05/20/23 17:05 17:22 WBC 9.53 RBC 4.06 Hgb 11.6 L Hct 34.6 MCV 85 MCH 29 MCHC 34 Plt Count 301 Diff Slide Review Acceptable Review BUN 6 Creatinine 0.4 L Estimated Creat Clear 220.06 Estimated GFR 130 AST 15 ALT 10 Urine Creatinine 83.6 Protein/Creatinin Ratio 0.10 Urine Total Protein 10 Blood Type A Positive Antibody Screen NEGATIVE Vital Signs Vital Signs: Last Vital Signs Temp 98.1 F 05/21/23 06:33 Pulse 98 05/21/23 11:15 Resp 18 05/21/23 06:33 BP 129/71 05/21/23 11:15 Pulse Ox 99 05/21/23 11:13 Weight: 118.932 kg Height: 182.88 cm Anesthesia Procedures Epidural Insertion Patient Location: OB Start Time: 10:45 Stop Time: 11:17 Start Date: 05/21/23 Stop Date: 05/21/23 Reason for Block: procedure for pain Patient Position: sitting Performed By: Adam Avilez Preanesthetic Checklist: IV checked, risks and benefits discussed, surgical consent, monitors and equipment checked, pre-op evaluation, timeout performed and anesthesia consent Prep: chlorhexidine gluconate Monitoring: blood pressure monitoring, continuous pulse oximetry and heart rate Approach: midline Vertebral Space: lumbar (1-5) Epidural Technique: LENNOX air Needle Type: Tuohy needle Injection Technique: continuous catheter Needle gauge: 17 Needle Length (cm): 10 cm Needle Insertion Depth (cm): 7 Catheter Gauge: 19 Catheter Type: multi-orifice Catheter at skin depth (cm): 13 Test Dose Result: negative and lidocaine 1.5% with epinephrine 1 to 200,000
--- NOTE | 2023-05-21 13:03 | PM.OBPNL ---
Subjective Time Seen by Provider: 13:03 Date Seen: 05/21/23 Narrative: Patient comfortable with epidural in place, able to rest. Still feeling mild pressure with contractions. No s/s of pre-eclampsia, BGs controlled. Objective Vital Signs: Last Vital Signs Temp 98.0 F 05/21/23 11:54 Pulse 78 05/21/23 12:49 Resp 18 05/21/23 06:33 BP 117/63 05/21/23 13:03 Pulse Ox 98 05/21/23 11:43 Pelvic Exam Dilation (cm): 2.5 Effacement (%): 30 Station: 0 Contractions Monitor mode: External Contraction pattern: Regular Contraction intensity: Mild Pitocin Rate (mU/min): 4 Assessment Assessment: active labor Station: 0 Amniotic Membrane Status: AROM Status: Category l Heart Rate Baseline: 145 Monitor Accelerations: Present Monitor Decelerations: Variable Labor Progress: As expected Maternal Status: Stable Plan Plan: Check cervix again when patient feeling pressure or 1600
--- NOTE | 2023-05-21 14:23 | W.PM.VAGDE_ITS ---
OB Procedure Vag Delivery Mother Details Mother Details: The patient is a 37 year-old, 4, Para 2, admitted on 05/20/23 at Days gestation for induction of labor secondary to multiple complications including preeclampsia without severe features, GDM on insulin. : 4 Para: 2 Weeks Gestation: 38 Admission Date: 05/20/23 Additional Details Amniotic Membrane Status: AROM Amniotic Membrane Rupture Date: 05/21/23 Amniotic Membrane Rupture Time: 10:30 Amniotic Membrane Fluid Description: Clear and [place] Analgesia/Anesthesia Type: Epidural, Fentanyl and Nitrous Oxide Waterbirth: No Pitcoin: Yes Intrapartal Events: Labor Augmentation and Labor Induction Induction Method: Cervidil Delivery augmentation: pitocin Labor Onset: 10:30 Complete: 13:45 Pushin:55 Heart: heart tones during second stage were category 2 with variable, early, and late decelerations but moderate variability between Delivery Details Delivery Date: 05/21/23 Delivery Time: 14:00 Route of delivery: Infant Gender: Male Infant Viability: Alive; Heart Rate Present Position at Delivery: OA Delivery Details: Delivered over intact perineum via spontaneous vaginal delivery. was placed on maternal abdomen.? Cord was clamped and cut after a 30-60 second delay. Nose and mouth were bulb suctioned.? weight pending. 1 Minute Interval Total Score: 8 5 Minute Interval Total Score: 9 Additional Details Shoulder Dystocia: No Placenta Delivery Time: 14:05 Placental Delivery Description: Spontaneous Procedure Done: Global Blood Loss: 100 Laceration: None Episiotomy Description: None Blood Loss Measurement Type: QBL Bakri Used: No Sponge/Need Count Correct: Yes Cord Vessel Description: 3 Vessels Event Summary Status: Mother and infant were stable after delivery. Disposition: floor
[2023-05-21] MEDS: IBUPROFEN 600 MG TABLET PO (17:01)
[2023-05-21] MEDS: SIMETHICONE 80 MG TAB.CHEW PO (20:22)
[2023-05-21] MEDS: ACETAMINOPHEN 500 MG TABLET 1000 MG PO (20:27)
[2023-05-22] MEDS: IBUPROFEN 600 MG TABLET PO ×2 (00:06→09:10)
[2023-05-22 00:09] VITALS: BP 123/86; PULSE 94; RESP 18; TEMP 36.5
[2023-05-22 05:53] VITALS: BP 133/82; PULSE 80; RESP 18; TEMP 36.5
[2023-05-22] MEDS: ACETAMINOPHEN 500 MG TABLET 1000 MG PO ×2 (05:59→12:16)
[2023-05-22 07:00] LABS: Hemoglobin* 10.6 gm/dL (12.0-16.0)
[2023-05-22 08:30] VITALS: BP 126/83; PULSE 90; RESP 16; TEMP 36.4; O2SAT 98
[2023-05-22] MEDS: DOCUSATE SODIUM 100 MG CAPSULE PO (08:35)
[2023-05-22] MEDS: LEVOTHYROXINE 75 MCG TABLET PO (08:35)
[2023-05-22] MEDS: OMEPRAZOLE 20 MG CAPSULE DR 40 MG PO (08:35)
--- NOTE | 2023-05-22 10:45 | PM.OBDSVD1 ---
DS: Providers Provider Date Seen: 05/22/23 Date of admission: 05/20/23 15:41 Primary care physician: Not a Local Provider Admitting Clinician: Emmy Lainez MD Consults: Forest Ecologist Physician on discharge: Mil Porter MD Date of Discharge: 05/22/23 DS: Diagnosis Discharge Diagnosis (1) History of herpes genitalis: Status: Acute Problem details: No recent genital outbreaks or current symptoms (2) White classification A2 gestational diabetes mellitus (GDM), insulin controlled: Status: Acute Problem details: Fasting glucose normal , discontinue treatment at this time and schedule for 75 g oral glucose tolerance test at 6 weeks (3) Anemia complicating : Status: Acute Problem details: Hemoglobin 10.6 on day of discharge, asymptomatic, continue iron in vitamin (4) Pre-eclampsia affecting , antepartum: Status: Acute Problem details: Resolved after delivery with blood pressures in the normal range, asymptomatic, will continue to monitor at home for symptoms and with blood pressure cuff (5) Advanced maternal age (AMA) in : Status: Acute Problem details: Screening prenatally normal (6) : Status: Acute Problem details: Delivered (7) ELOY (generalized anxiety disorder): Status: Chronic Problem details: Mood stable, aware of symptoms for which to call (8) Hypothyroidism: Status: Chronic Problem details: Well controlled on levothyroxine (9) GERD (gastroesophageal reflux disease): Status: Chronic Problem details: No current symptoms (10) Depression: Status: Chronic Problem details: Mood stable (11) Unwanted fertility: Status: Acute Problem details: Patient desires sterilization, and signed Federal sterilization papers during course. We discussed the possible procedures including salpingectomy during this hospitalization versus interval laparoscopic salpingectomy prior to any insurance changes. Given the patient's medical complications of obesity, gestational diabetes on insulin, preeclampsia, I advised patient that I would be willing to perform a salpingectomy however he would be lower risk overall for the patient to have an interval laparoscopic procedure performed. Patient is concerned about possible insurance coverage issues for interval laparoscopic procedure however decided that she will wait and figure out the insurance issues if they come up. Advised patient that if there are insurance issues, [facility] can be applied for to cover the surgery within 6 weeks of delivery, and there are family planning grants from various organizations as well. Will notify patient's primary OB team and plan to get patient on the surgery schedule within 6 weeks of delivery, and no openings available I will be back in the hospital late May. Exam Const: Vital Signs, click to edit/add: Vital Signs - 24 hr 05/21/23 10:54 05/21/23 10:58 05/21/23 11:03 Temperature Pulse Rate 104 H Pulse Rate [Left B lood Pressure Cuff ] Respiratory Rate Blood Pressure 138/89 Blood Pressure [Le ft Arm] Pulse Oximetry 98 98 Oxygen Delivery Me thod 05/21/23 11:05 05/21/23 11:07 05/21/23 11:08 Temperature Pulse Rate 99 105 H Pulse Rate [Left B lood Pressure Cuff ] Respiratory Rate Blood Pressure 127/74 123/76 Blood Pressure [Le ft Arm] Pulse Oximetry 97 Oxygen Delivery Me thod 05/21/23 11:09 05/21/23 11:11 05/21/23 11:13 Temperature Pulse Rate 102 H 101 H 99 Pulse Rate [Left B lood Pressure Cuff ] Respiratory Rate Blood Pressure 126/72 120/60 126/64 Blood Pressure [Le ft Arm] Pulse Oximetry 99 Oxygen Delivery Me thod 05/21/23 11:15 05/21/23 11:17 05/21/23 11:18 Temperature Pulse Rate 98 105 H Pulse Rate [Left B lood Pressure Cuff ] Respiratory Rate Blood Pressure 129/71 132/74 Blood Pressure [Le ft Arm] Pulse Oximetry 99 Oxygen Delivery Me thod 05/21/23 11:19 05/21/23 11:21 05/21/23 11:23 Temperature 98.1 F Pulse Rate 100 95 89 Pulse Rate [Left B lood Pressure Cuff ] Respiratory Rate Blood Pressure 130/76 127/72 131/76 Blood Pressure [Le ft Arm] Pulse Oximetry 98 Oxygen Delivery Me thod 05/21/23 11:25 05/21/23 11:28 05/21/23 11:32 Temperature Pulse Rate 91 93 Pulse Rate [Left B lood Pressure Cuff ] Respiratory Rate Blood Pressure 129/79 123/69 Blood Pressure [Le ft Arm] Pulse Oximetry 98 Oxygen Delivery Me thod 05/21/23 11:33 05/21/23 11:37 05/21/23 11:38 Temperature Pulse Rate 100 Pulse Rate [Left B lood Pressure Cuff ] Respiratory Rate Blood Pressure 117/70 Blood Pressure [Le ft Arm] Pulse Oximetry 98 98 Oxygen Delivery Me thod 05/21/23 11:42 05/21/23 11:43 05/21/23 11:47 Temperature Pulse Rate 96 96 Pulse Rate [Left B lood Pressure Cuff ] Respiratory Rate Blood Pressure 122/68 116/69 Blood Pressure [Le ft Arm] Pulse Oximetry 98 Oxygen Delivery Me thod 05/21/23 11:54 05/21/23 12:04 05/21/23 12:17 Temperature 98.0 F Pulse Rate 78 95 Pulse Rate [Left B lood Pressure Cuff ] Respiratory Rate Blood Pressure 109/55 L 112/64 Blood Pressure [Le ft Arm] Pulse Oximetry Oxygen Delivery Me thod 05/21/23 12:49 05/21/23 13:03 05/21/23 13:18 Temperature Pulse Rate 78 80 81 Pulse Rate [Left B lood Pressure Cuff ] Respiratory Rate Blood Pressure 120/65 117/63 120/68 Blood Pressure [Le ft Arm] Pulse Oximetry Oxygen Delivery Me thod 05/21/23 13:33 05/21/23 13:46 05/21/23 13:51 Temperature Pulse Rate 83 Pulse Rate [Left B lood Pressure Cuff ] Respiratory Rate Blood Pressure 115/65 Blood Pressure [Le ft Arm] Pulse Oximetry 100 100 Oxygen Delivery Me thod 05/21/23 13:56 05/21/23 14:07 05/21/23 14:22 Temperature Pulse Rate 83 87 Pulse Rate [Left B lood Pressure Cuff ] Respiratory Rate Blood Pressure 146/79 H 147/82 H Blood Pressure [Le ft Arm] Pulse Oximetry 100 Oxygen Delivery Me thod 05/21/23 14:40 05/21/23 14:52 05/21/23 15:07 Temperature Pulse Rate 86 90 83 Pulse Rate [Left B lood Pressure Cuff ] Respiratory Rate Blood Pressure 143/81 H 151/90 H 155/90 H Blood Pressure [Le ft Arm] Pulse Oximetry Oxygen Delivery Me thod 05/21/23 15:19 05/21/23 15:22 05/21/23 15:37 Temperature 98.5 F Pulse Rate 96 93 Pulse Rate [Left B lood Pressure Cuff ] Respiratory Rate Blood Pressure 145/89 H 146/85 H Blood Pressure [Le ft Arm] Pulse Oximetry Oxygen Delivery Me thod 05/21/23 15:52 05/21/23 16:07 05/21/23 16:22 Temperature 98.4 F Pulse Rate 96 96 94 Pulse Rate [Left B lood Pressure Cuff ] Respiratory Rate Blood Pressure 148/87 H 143/82 H 146/84 H Blood Pressure [Le ft Arm] Pulse Oximetry Oxygen Delivery Me thod 05/21/23 19:44 05/22/23 00:09 05/22/23 05:53 Temperature 98.8 F 97.7 F 97.7 F Pulse Rate Pulse Rate [Left B lood Pressure Cuff ] 120 H 94 80 Respiratory Rate 18 18 18 Blood Pressure Blood Pressure [Le ft Arm] 149/91 H 123/86 133/82 Pulse Oximetry 99 Oxygen Delivery Me thod Room Air 05/22/23 08:30 Temperature 97.6 F Pulse Rate Pulse Rate [Left B lood Pressure Cuff ] 90 Respiratory Rate 16 Blood Pressure Blood Pressure [Le ft Arm] 126/83 Pulse Oximetry 98 Oxygen Delivery Me thod Room Air Documenting provider has reviewed patient's vital signs: yes Common normals: no apparent distress and oriented x3 General appearance: cooperative and comfortable Nutritional appearance: obese Resp: Common normals: normal respiratory effort Effort & inspection: able to speak in complete sentences GI: Common normals: soft to palpation Inspection: abdominal distension Palpation: soft; non-tender and no guarding Other: Fundus firm below umbilicus : Other: Lochia minimal Extremity: Common normals: no calf tenderness General: edema (Pitting to the knees bilateral) Neuro: Common normals: oriented x3 Psych: Common normals: mental status grossly normal, thought process normal, cooperative, affect normal and speech normal Speech: normal speech Mood and affect: euthymic mood Thought process: normal thought process Insight: insight good Judgement: judgment good OB - DS: Summary Hospital Course Hospital Course: The patient is a 37 year old G 4 P 2013 at 36 weeks 6 days gestation that was admitted to the Center on 05/20/23 for induction of labor secondary to preeclampsia without severe features at early term. further complicated by multiple medical comorbidities, see problems for full details. She had an uncomplicated spontaneous vaginal delivery, see delivery note for details. She delivered a viable male . She is breast feeding. the patient has done well, fasting blood sugar normal, blood pressures in the normal range and asymptomatic, meeting all goals and stable for discharge home. Peripartum Data delivery method: Vaginal Laceration description: None Episiotomy description: None complications: none Gender: Male Infant Discharge Plan: Home Time Spent with Patient Time attestation: Total time spent providing and/or coordinating discharge services: Time spent: Greater than 30 minutes Discharge Plan Discharge Disposition: Home, Self-Care Date of Admission: 05/20/23 15:41 Attending Provider on Discharge: Mil Porter Primary Care Provider: Provider,Not a Local Condition: Stable Anticipated Discharge Date/Time: 05/22/23 10:56 Discharge Medications: New docusate sodium 100 mg Capsule 100 mg PO DAILY Qty: 30 0RF ibuprofen 600 mg Tablet 600 mg PO Q6H PRNQty: 30 0RF Continued levothyroxine 75 mcg tablet 75 mcg PO DAILY acetaminophen [Tylenol Extra Strength] 500 mg tablet 1,000 mg PO Q6H PRN prenat.vits,barron,[id number] Tablet 1 tab PO QDAY marsha root extract 50 mg tablet PO PRN ferrous sulfate [Iron (ferrous sulfate)] 325 mg (65 mg iron) tablet 325 mg PO Q OTHER DAY Qty: 30 3RF aspirin [Adult Low Dose Aspirin] 81 mg tablet,delayed release (DR/EC) 81 mg PO QDAY methylphenidate HCl [Ritalin LA] 20 mg capsule,ER biphasic 50-50 20 mg PO QAM erythromycin with ethanol 2 % gel 1 applic topical BID Qty: 30 1RF omeprazole 20 mg capsule,delayed release(DR/EC) 40 mg PO BID ascorbic acid (vitamin C) [Vitamin C] 250 mg tablet 250 mg PO DAILY Discontinued valacyclovir 500 mg tablet 500 mg PO QDAY PRN Hold Instructions: Changed order to BID (DME) Test Strips [facility] See Rx Instructions .MEDSUPPLY Qty: 100 3RF Rx Instructions: Test blood sugar 4 times daily. (DME) lancets Misc See Rx Instructions .MEDSUPPLY Qty: 100 3RF Rx Instructions: Test blood sugar 4 times daily. (DME) Blood Glucose Meter Misc See Rx Instructions .MEDSUPPLY Qty: 1 0RF Rx Instructions: As directed Humulin N NPH Insulin KwikPen 100 unit/mL (3 mL) insulin pen 22 unit subcut .hs ondansetron 4 mg tablet,disintegrating 4 mg PO Q6H PRN (Reason: nausea and vomiting) Qty: 30 1RF valacyclovir [Valtrex] 500 mg tablet 500 mg PO BID Qty: 50 0RF Humulin N NPH Insulin KwikPen 100 unit/mL (3 mL) insulin pen 15 unit subcut QAM Discharge Orders: Discharge Order (Routine); Ordered 05/22/23 Ordered By: Mil Porter Patient Education: OB Care, OB Vaginal/Breast Feeding Additional Instructions: Follow-up appointments to include: Nurse blood pressure check in 3-5 days visit in 2 weeks visit in 6 weeks Laparoscopic bilateral salpingectomy for sterilization within 6 weeks Activity Detail: Nothing in vagina for 6 weeks: No sex, no tampons, use only a pad Discharge Diet: Regular Follow Up Appointments: Provider,Not a Local [Primary Care Provider] - Emmy Lainez MD [Staff Physician] - Forms: [employer] Info Instructions DS:Data Additional Comments Additional comments: HELLP labs normal, hemoglobin 10.6 on day of discharge
[2023-05-22 12:10] VITALS: BP 108/71; PULSE 90; RESP 18; TEMP 36.6; O2SAT 98
[2023-05-22 16:10] VITALS: BP 113/64; PULSE 88; RESP 16; TEMP 36.7; O2SAT 97
== END 2023-05-22 16:50 | disposition home or self-care (01) | DRG 806 ==
PROVIDERS: Admitting Provider Obstetrics & Gynecology; Visit Provider Obstetrics & Gynecology
DX: O14.04 Mild to moderate pre-eclampsia, complicating childbirth (principal); O98.32 Other infections with a predominantly sexual mode of transmission complicating childbirth; Z37.0 Single live birth; Z3A.36 36 weeks gestation of pregnancy; F98.8 Other specified behavioral and emotional disorders with onset usually occurring in childhood and adolescence; F43.10 Post-traumatic stress disorder, unspecified; O99.284 Endocrine, nutritional and metabolic diseases complicating childbirth; E03.9 Hypothyroidism, unspecified; O24.424 Gestational diabetes mellitus in childbirth, insulin controlled; F41.1 Generalized anxiety disorder; O99.344 Other mental disorders complicating childbirth; F32.A Depression, unspecified; K21.9 Gastro-esophageal reflux disease without esophagitis; O99.02 Anemia complicating childbirth; D64.9 Anemia, unspecified; O36.63X0 Maternal care for excessive fetal growth, third trimester, not applicable or unspecified
CPT/HCPCS: 01967; 36415; 59200; 82565; 82570; 82962; 84156; 84450; 84460; 84520; 85018; 85025; 85027; 86850; 86900; 86901; A9270; J2270; J2371; J2795; J3010; J7120

== ENCOUNTER 2023-06-24 10:15 | Outpatient (CLI) | payer MEDICAID, SELFPAY ==
--- NOTE | 2023-06-24 17:00 | W.PM.LAC.MC ---
Consult Note - Mom Date of Visit Date of visit: 06/24/23 web development consultant: Sofi Pfeiffer Visit Code: Visit Patient's Information Phone number: [phone] : 4 Para: 3 Allergies cetirizine [From Zyrtec] Allergy (Unknown, Verified 06/13/23 13:11) Unknown doxycycline Allergy (Unknown, Verified 06/13/23 13:11) Gastrointestinal Upset fexofenadine [From Allyn] Allergy (Unknown, Verified 06/13/23 13:11) Unknown Sulfa (Sulfonamide Antibiotics) Allergy (Unknown, Verified 06/13/23 13:11) Unknown Mother's Medical History: Medical History (Updated 06/07/23 @ 16:06 by Emmy Lainez MD) White classification A2 gestational diabetes mellitus (GDM), insulin controlled ?O24.414 - Gestational diabetes mellitus in , insulin controlled (ICD-10) Pre-eclampsia affecting , antepartum ?O14.90 - Unspecified pre-eclampsia, unspecified trimester (ICD-10) Advanced maternal age (AMA) in Herpes genitalia ?A60.00 - Herpesviral infection of urogenital system, unspecified (ICD-10) ELOY (generalized anxiety disorder) ?F41.1 - Generalized anxiety disorder (ICD-10) ADD (attention deficit disorder) ?F98.8 - Other specified behavioral and emotional disorders with onset usually occurring in childhood and adolescence (ICD-10) PTSD (post-traumatic stress disorder) ?F43.10 - Post-traumatic stress disorder, unspecified (ICD-10) Panic attacks ?F41.0 - Panic disorder [episodic paroxysmal anxiety] (ICD-10) Depression ?F32.A - Depression, unspecified (ICD-10) Hypothyroidism ?E03.9 - Hypothyroidism, unspecified (ICD-10) Type of Contraception: considering a salpingectomy Work Plans: returns to work in about three weeks Delivery Information Delivery type: Vaginal Weeks Gestation: 36.6 Gestational Age: LGA Weight: 3.875 kg Discharge Weight: 4.426 kg Baby's Information Baby's Age at Visit: one month Baby's Provider or Clinic: Dr. Barton Jaundice: No (resolved) Reason for Consult Reason for Consult: concern for supply and transfer Past Experience Past Experience: Yes (nursed her two older children for a few months) Current Frequency of Day Feedings: every 2 - 3 hours Frequency of Night Feedings: 1 - 2 times overnight Both Breasts: Yes Suck: strong Latch: wide Length of Time: 20 - 30 minutes Pumping Pumping: Yes (mom pumps about once/day) Quantity Pumped: 4 - 5 oz total Supplementing EMB Supplement: Yes (mom gives about 2 oz after nursing sessions when baby seems hungry) Formula Supplement: Yes Baby Elimination Number of Wet Diapers a Day: at least every other feeding Number of BM a Day: once/day or at least every other day Breast/Nipple Condition Breast Information: WNL Maternal Nipple Condition - Left: Common Nipple Maternal Nipple Condition - Right: Common Nipple Onsite Pre-Feed weight: 4.426 kg Post-Feed weight: 4.466 kg Milk Transferred (mL): 40 Assessments/Interventions Assessments/Interventions: Met with mom and this now one month old ex- late LGA baby for consult. Mom reports nursing has been comfortable since baby's tongue was clipped at his initial NB visit. She's concerned about how much she's making and possibly how much baby is transferring however, stating he rarely seems satisfied after nursing and she usually has to supplement him with about 2 oz EBM or formula. She's also worried her milk might not have enough fat. Mom is pumping with a [place] Go once/day and gets between 4 - 5 oz total. Breasts WNL- symmetrical with rounded lower quadrants, nipples intact and don't flatten or retract on compression, no damage noted. Mom with significant medical hx including: hypothyroidism, GHTN, De Quervain's syndrome, depression, anxiety. Middle child is autistic, has supportive partner. Baby has gained 36 grams/day since his last visit on 06/03/23. Per mom he has a little more difficulty turning his head to the left and he's seen a chiropractor x 1 for that. Mom was given some stretches to do with him at home and plans on following up in a few weeks. Baby's upper frenulum seems tight as his lip is difficult to flange and his gums yolanda, no suck blister noted. His palate is WNL, He has a strong suck on a finger and the tongue consistently extends past the gum line. The tongue also has good lateral movement without much canoeing. The lower frenulum has healed nicely and now looks to be WNL. Mom latched baby to the left side independently and the latch looked wide, mom was comfortable; upper lip was neutral. He nursed for about 15 minutes, needing some stimulation to stay awake and actively nurse. He came off once d/t her flow and she reported this side has a faster flow and she often nurses in a reclined position to help him manage it. She offered the right side and he had more difficulty, possibly b/c he had to turn more to the left. She's unable to use the football hold b/c of her wrists and when she tried both reclined and side lying positions he wasn't interested. After a 10 - 15 minute attempt to entice him, mom gave up. He was weighed and transferred 40 ml. Plan: 1. Continue to breastfeed ALD, offering both sides. She does a good job positioning baby and bothering him to keep him suckling nutritively. Unsure why with suck a strong suckle he didn't transfer more. 2. Suggested she continue to watch his cues as he probably needs supplementation after most feedings and discussed that a baby his age usually wants 3 - 5 oz each feeding. 3. Reviewed with her that it's very rare for a woman not to have enough fat in her milk and his slow weight gain initially was probably due more to how much he was transferring. Reviewed some food that might increase the fat content. 3. Encouraged her to consider pumping more often, especially since it's a wearable pump. She might be able to reduce the amount of formula she's using for supplement. 4. Will f/u with PCP for a 2 month C. Encouraged her to consider Baby Talk. Meds Home Medications and Allergies Home Medications Medication Instructions Recorded Confirmed Type acetaminophen 500 mg tablet 1,000 mg PO Q6H PRN 11/05/22 06/13/23 History (Tylenol Extra Strength) levothyroxine 75 mcg tablet 75 mcg PO DAILY 11/05/22 06/13/23 History prenat.vits,barron,[id number] 1 tab PO QDAY 11/05/22 06/13/23 History methylphenidate HCl 20 mg biphasic 20 mg PO QAM 12/24/22 06/13/23 History 50-50 capsule,extended release (Ritalin LA) ascorbic acid (vitamin C) 250 mg 250 mg PO DAILY 05/08/23 06/13/23 History tablet (Vitamin C) Allergies Allergy/AdvReac Type Severity Reaction Status Date / Time cetirizine [From Zyrtec] Allergy Unknown Unknown Verified 06/13/23 13:11 doxycycline Allergy Unknown Gastrointestinal Verified 06/13/23 13:11 Upset fexofenadine [From Allyn] Allergy Unknown Unknown Verified 06/13/23 13:11 Sulfa (Sulfonamide Allergy Unknown Unknown Verified 06/13/23 13:11 Antibiotics)
== END 2023-06-24 10:16 | disposition home or self-care (01) ==
LOC: OB LAC 10:15
PROVIDERS: Visit Provider Obstetrics & Gynecology
DX: Z39.1 Encounter for care and examination of lactating mother (principal)
CPT/HCPCS: 99211

== ENCOUNTER 2023-07-13 08:10 | Outpatient (CLI) | payer MEDICAID, SELFPAY ==
--- OUTSIDE RECORDS SUMMARY | 2023-07-14 04:32 | XMS_ITS | Continuity of Care Document ---
Author Name Unknown Organization [facility] Address [address] [address] [place] [address] Phone Care Team Providers Care First Mate Name Role Phone Unavailable Unavailable Unavailable Allergies, Adverse Reactions, Alerts Substance Reaction Status Criticality adhesive tape Rash Active No Information Procedures Procedure Date Ugi Endo; W/endo Ultrasound Ex New Level 4 Advance Directives Directive Yes / No Effective Date File Name No Information Encounters Encounter Description Practice Location Reason(s) For Visit Diagnoses Date Provider Providers Copied on Encounter [facility], [address] [address], [place], [place], [id number], [place] tel:[phone] [facility] No Information Apr- 1 No Information [facility], [address] [address], [place], [place], [id number], [place] tel:[phone] [facility] Abdominal pain, acuteElevated LFTs Oct- 1 No Information [facility], [address] [address], [place], [place], [id number], [place] tel:[phone] [facility] No Information Oct- 1 Lilliam Nowak. [address] [facility], [place], [place], [id number], [place]. tel:[phone] Referring Provider: Susanna Escalante MD M, [address] [facility], [place], [address]. tel:[phone] [facility], [address] [address], [facility] [place] [place], [id number], [place] tel:[phone] [facility] No Information 1 Adrianna Wakefield. [address], [id number], [place]. tel:[phone] New Level 4 [facility], [address] [address], [place], [place], [id number], [place] tel:[phone] [facility] GI Symptoms or Concerns (chief complaint) RUQ abdominal painElevated LFTsStatus post cholecystectom y 1 No Information [facility], [address] [address], [place], [address], [place] tel:[phone] [facility] No Information 1 No Information [facility], [address] [address], [place], [id number], [place] tel:[phone] [facility] No Information 1 Donaldo Jaeger. [address] [facility] [address], [place], [id number], [place]. tel:[phone] Family History Family Member Type Diagnosis Age [...] Type Action Status Referral Referred To: [address] [facility] [address] [place], [address] Ordered: referred to Cliff Turpin MD s/p [...] ultimately led to a cholecystectomy apparently at [facility] in 2014 for confirmed gallbladder sludge. Within [...] Otherwise, we will request records from the [facility] in [place], [facility], as well as [facility] for review. Related to RUQ abdominal pain Consider referral to [facility]) for ?SOD if EUS is neg Related to RUQ abdominal pain Assessments Type Assessment Date No Information Patient Care Teams Name Effective Dates (start - stop) Status Members No Information
== END 2023-07-13 08:11 | disposition home or self-care (01) ==
PROVIDERS: Visit Provider Obstetrics & Gynecology
DX: O24.419 Gestational diabetes mellitus in pregnancy, unspecified control (principal)
CPT/HCPCS: 82947; 82950